=== PATIENT | female | born 1960 | race Two or more races ===

== ENCOUNTER → 2017-02-26 | Outpatient (CLI) | payer MEDICAID ==
[~2017-02-26] MED LIST: REGADENOSON 0.4 MG/5 ML IV ONE
== END | disposition home or self-care (01) ==
LOC: NM 07:24
PROVIDERS: ATTEND Internal Medicine Cardiovascular Disease
DX: I10 Essential (primary) hypertension (principal); E11.9 Type 2 diabetes mellitus without complications; E66.9 Obesity, unspecified; R07.89 Other chest pain
CPT/HCPCS: 78452; 93017; A9500; J2785